=== PATIENT | male | born 1955 | race Caucasian/White ===

== ENCOUNTER 2017-10-28 10:00 | Emergency (ER) | payer OTHER ==
[~2017-10-28] VITALS: Ht 177.8 cm; Wt 93.0 kg
[2017-10-28] MEDS ORDERED: ASPI81TA31 PO (10:05)
--- NOTE | 2017-10-28 10:07 | NUR ---
PT IS IN ROOM #2A. DR MUNOZ EVALUATED THE PT.
[2017-10-28] MEDS ORDERED: LIDOCAINE 1%-EPI 1:100,000 20 ML VIAL ONE (10:30)
[2017-10-28] MEDS ORDERED: EPINEPHRINE-PF 1:1000 1 MG/ML AMPUL IV ONE (10:30)
[2017-10-28] MEDS ORDERED: EPINEPHRINE 1 MG/1 ML AMP ONE ×2 (10:31→10:35)
[2017-10-28 10:47] VITALS: BP 141/95
--- NOTE | 2017-10-28 10:49 | NUR ---
PT WAS D/C TO HOME. D/C INSTRUCTIONS GIVEN TO THE PT. NO NOSE BLEEDING AT THIS TIME.
== END 2017-10-28 10:50 | disposition home or self-care (01) ==
LOC: ER 10:00
DX: R04.0 Epistaxis (principal); E78.5 Hyperlipidemia, unspecified; I10 Essential (primary) hypertension; Z79.82 Long term (current) use of aspirin
CPT/HCPCS: 30901; A4663; J0171; J3490